=== PATIENT | female | born 1995 | race Caucasian/White ===

== ENCOUNTER → 2017-10-10 | Outpatient (CLI) | payer BC ==
[~2017-10-10] MED LIST: GADAVIST IV PRN
--- NOTE | 2017-10-10 08:05 | DIAGNOSTIC IMAGING REPORT ---
MRI THE BRAIN AND PITUITARY WITHOUT A WITH GADOLINIUM CLINICAL HISTORY: ELEVATED PITUITARY HORMONE LEVELS hyperprolactinemia COMPARISON STUDY: No previous studies for comparison. FINDINGS: Imaging was performed in the sagittal axial and coronal planes before and after the administration of 6 cc of intravenous Gadavist. There is no CT evidence of acute cortical infarction. There is no evidence of hydrocephalus. Proton density, T2-weighted, and FLAIR images reveal no significant intraparenchymal signal abnormalities. There are no abnormal flow voids. Dynamic imaging was obtained through the pituitary. The pituitary gland is of normal size. The optic chiasm appears normal. There is a very subtle 5 mm area of diminished enhancement involving the right lateral aspect of the gland. In the setting of hyperprolactinemia, this could represent a small adenoma. No additional foci of pathologic enhancement are visualized. IMPRESSION: 1. Very subtle 5 mm area of diminished enhancement involving the right lateral aspect of the pituitary gland. In the setting of hyperprolactinemia, this could represent a small adenoma. 2. The examination is otherwise normal Electronically signed by: Jun Luna M.D. 10/10/2017 8:03 AM Dictated Date/Time: 10/10/2017 7:58 AM
== END | disposition home or self-care (01) ==
LOC: C.MRI 06:44 → EDBD 10-11 07:00
PROVIDERS: ATTEND Obstetrics & Gynecology
DX: E22.1 Hyperprolactinemia (principal)